=== PATIENT | male | born 1945 | race Caucasian/White ===

== ENCOUNTER 2019-04-24 09:40 | Emergency (ER) | payer MEDICARE, SELFPAY ==
--- NOTE | ~2019-04-24 | CT_ITS ---
EXAMINATION: CT abdomen pelvis w con EXAM DATE: 04/24/2019 12:44 INDICATION: Left-sided abdominal pain. TECHNIQUE: Spiral CT of the abdomen and pelvis was performed following intravenous injection of 100 m L Omnipaque 350. Axial, coronal and sagittal images were reviewed. The dose-length product (DLP) fo r this examination was 1374.24 mGy-cm. The exposure was tailored according to patient size (auto mA exposure control), and iterative reconstruction (ASIR) was used as additional dose reduction techniqu e. There is no prior study for comparison. FINDINGS: There is hepatic steatosis without suspicious focal lesion identified. Spleen, adrenal glan ds, pancreas are unremarkable. There is gallstone within an otherwise unremarkable gallbladder. No evidence of obstructive biliary disease. Portal and splenic veins are patent. Kidneys enhance symme trically. There is no hydronephrosis. There may be radiation prostate seeds. The bladder is diste nded but otherwise unremarkable. There are small bilateral inguinal fat-containing hernias. There is large supraumbilical hernia containing omental fat, herniated portion measuring about 3 x 14 cm with the mouth of the hernia measuring about 3 cm. There is no retroperitoneal or pelvic lymphadenopathy. There is mild scattered arteriosclerotic disease. The appendix is normal. The stomach and small bowel are unremarkable. There is expected amount of c olonic stool. No free intraperitoneal gas. There is mild scattered colonic diverticulosis. There is no adjacent inflammatory change to suggest diverticulitis. The heart is normal in size. There are no pericardial or pleural effusions. The lung bases are unremarkable. There are no osteoblastic or osteolytic lesions identified. IMPRESSION: 1. No acute intra-abdominal findings. 2. Large fat-containing supraumbilical hernia. 3. Cholelithiasis. 4. Hepatic steatosis. 5. Scattered colonic diverticulosis. Reviewed, dictated and finalized at location A. 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
[2019-04-24 09:57] VITALS: BP 148/78; PULSE 62; RESP 18; TEMP 36.3; O2SAT 100
[2019-04-24 10:28] LABS: Basophils Absolute Auto 0.1 K/mm3 (0.0-0.1); Basophils Percent Auto 0.8 % (0.2-1.2); Eosinophils Percent Auto 0.6 % (0-4.4); Hematocrit 43.6 % (42.0-52.0); Hemoglobin 13.7 g/dL (14.0-18.0); Immature Granulocyte Absolute 0.03 K/mm3 (0.00-0.031); Immature Granulocyte Percent A 0.5 % (0-0.5); Lymphocytes Absolute Auto 0.78 K/mm3 (0.9-3.2); Lymphocytes Percent Auto 12.6 % (18.3-44.2); Mean Corpuscular HGB Conc 31.4 g/dl (32-36); Mean Corpuscular Volume 85.8 fl (80-100); Mean Platelet Volume 9.9 fl (7.4-10.4); Monocytes Absolute Auto 0.4 K/mm3 (0.1-0.6); Monocytes Percent Auto 6.3 % (2.6-8.5); Neutrophils Absolute Auto 4.9 K/mm3 (1.3-6.7); Neutrophils Percent Auto 79.2 % (45.5-73.1); Platelet Count Result 249 k/mm3 (150-375); Red Blood Count 5.08 M/mm3 (4.6-6.20); Red Cell Distribution Width 13.6 % (11.5-14.5); White Blood Count 6.2 K/mm3 (4.5-10.0)
[2019-04-24 10:40] LABS: Add Urine Microscopic? NO; Appearance Urine Clear (Clear); Bilirubin Urine Negative (Negative); Blood Urine Negative (Negative); Color Urine Colorless (Yellow); Glucose Urine UA Negative (Negative); Ketones Urine Negative (Negative); Leukocyte Esterase Ur Negative LEU/UL (Negative); Nitrate Urine Negative (Negative); Protein Urine Negative (Negative); Urobilinogen Urine Negative mg/dL (<2.0)
[2019-04-24 10:44] LABS: Blood Urea Nitrogen 17 mg/dL (9-20); Carbon Dioxide 26 mmol/L (22-30); Chloride 102 mmol/L (98-107); Estimated CRCL calculation 85 ml/min; Estimated Glomerular Filt Rate > 60; Glucose 178 mg/dL (75-110); Potassium 4.2 mmol/L (3.4-5.0); Sodium 139 mmol/L (137-145)
[2019-04-24 10:45] LABS: Specific Grav Ur 1.004 (1.001-1.035)
--- NOTE | 2019-04-24 12:06 | ED.BACK ---
HPI - Back Pain/Injury General Chief Complaint: Urogenital-Male Stated Complaint: right flank pain Time Seen by Provider: 04/24/19 12:04 Source: patient Mode of arrival: ambulatory Limitations: no limitations History of Present Illness HPI Narrative: Pt is a 73 y/o male who presents to the ED with c/o rt flank pain that radiates to his groin. He saw his PCP on 04/15/19 and was Rx prednisone and a muscle relaxer for nerve pain. He had a consult out to Dr. Myles who thought it may be a kidney stone. He denies a H/o kidney stone. Pt also denies fever, N/V, or dysuria. He has not taken any pain medicine. MD elicited complaint: other (flank pain) Onset (ago): day(s) (9) Location: right flank Radiation: groin Relieving factors: none Associated symptoms: denies other symptoms Treatments prior to arrival: other (prednisone and muscle relaxer) Related Data Home Medications Medication Instructions Recorded Confirmed amlodipine 04/24/19 cyclobenzaprine mg 04/24/19 famotidine 04/24/19 levothyroxine 04/24/19 lisinopril 04/24/19 lovastatin mg 04/24/19 metformin mg PO 04/24/19 prednisone 04/24/19 tamsulosin mg PO 04/24/19 Allergies Allergy/AdvReac Type Severity Reaction Status Date / Time carvedilol AdvReac Intermediate LISTLESSNES Verified 04/24/19 10:10 S celecoxib AdvReac Intermediate BODY CHILLS Verified 04/24/19 10:10 diclofenac AdvReac Intermediate BODY CHILLS Verified 04/24/19 10:10 hydralazine AdvReac Intermediate LISTLESSNES Verified 04/24/19 10:10 S Review of Systems Review of Systems: All systems reviewed & are unremarkable except as noted in HPI and below Constitutional: Constitutional: Denies fever(s) Gastrointestinal: Gastrointestinal: Denies nausea and Denies vomiting Genitourinary: Genitourinary: Denies dysuria and Reports flank pain (rt) [facility] Past Medical History Medical History (Updated 04/24/19 @ 13:35 by Davie Holman DO) Arthritis Diabetes mellitus GERD (gastroesophageal reflux disease) HLD (hyperlipidemia) HTN (hypertension) Hypothyroid Prostate cancer Sleep apnea Surgical History Surgical History (Updated 04/24/19 @ 12:27 by Ana Lilia Luu) H/O knee surgery Social History Social History (Updated 04/24/19 @ 12:27 by Ana Lilia Luu) Smoking status: Never smoker Gender identity (if verbalized by the patient): Male Exam Narrative: Exam Narrative: APPEARANCE: No acute distress, nontoxic, resting in bed EYES: EOMI HEENT: Normocephalic, atraumatic, OMM RESPIRATORY: No respiratory distress Clear to auscultation bilaterally with no rhonchi wheezing or rales. CARDIOVASCULAR: Regular rate and rhythm without murmurs rubs or gallops. ABDOMINAL: Soft, nondistended, tender palpation right lower quadrant, no tenderness in right upper quadrant, left upper quadrant left lower quadrant, no rebound or guarding Back: No midline tenderness palpation, tender palpation of right paravertebral muscles L4-5, MUSCULOSKELETAl: Moves all extremities. No clubbing, cyanosis or edema. NEURO: Awake and alert. Following commands, speech normal, no focal deficits muscle strength 5 out of 5 bilateral upper and lower extremities SKIN:: Warm, dry. No rashes lesions or abrasions PSYCHIATRIC: Normal affect/mood, Course Course Emergency Course: Patient states he is been on steroids for the past 2 days. Discussed with patient results of workup and diagnosis. Discussed need for follow-up with primary care, proper use of medication, and reasons to return to the emergency department. Patient understands and agrees to current treatment plan Vital Signs Vital signs: Vital Signs Temperature 97.3 F L 04/24/19 09:57 Pulse Rate 62 04/24/19 09:57 Respiratory Rate 18 04/24/19 09:57 Blood Pressure 148/78 H 04/24/19 09:57 Pulse Oximetry 100 04/24/19 09:57 Temperature 97.3 F L 04/24/19 09:57 Pulse Rate 62 04/24/19 12:24 Respiratory Rate 18 04/24/19 12:24 Blood P
[2019-04-24 12:24] VITALS: BP 165/80; PULSE 62; RESP 18; O2SAT 98
[2019-04-24] MEDS: MORPHINE SULFATE 2 MG/ML INJ IV PUSH (13:07)
[2019-04-24 13:19] LABS: Alanine Aminotransferase 69 U/L (4-50); Albumin Level 4.4 g/dL (3.5-5.1); Alkaline Phosphatase 54 U/L (38-126); Aspartate Amino Transferase 64 U/L (17-59); Bilirubin,Total 0.5 mg/dL (0.2-1.3)
== END 2019-04-24 14:21 | disposition home or self-care (01) ==
PROVIDERS: Emergency Provider Emergency Medicine
DX: M54.31 Sciatica, right side (principal); M19.90 Unspecified osteoarthritis, unspecified site; E11.9 Type 2 diabetes mellitus without complications; E78.5 Hyperlipidemia, unspecified; I10 Essential (primary) hypertension; E03.9 Hypothyroidism, unspecified; Z85.46 Personal history of malignant neoplasm of prostate; G47.30 Sleep apnea, unspecified; Z79.84 Long term (current) use of oral hypoglycemic drugs
CPT/HCPCS: 36415; 74177; 80048; 80076; 81003; 85025; 96374; 99284; J2270; Q9967